=== PATIENT | male | born 1995 | race Caucasian/White ===

== ENCOUNTER 2023-04-12 08:43 | Emergency (ER) | payer OTHER, SELFPAY ==
[2023-04-12 08:48] VITALS: BP 155/98; PULSE 98; RESP 18; O2SAT 100; BMI 26.6
--- NOTE | 2023-04-12 10:57 | ED.GENADUL1 ---
HPI - General Adult General Chief complaint: Dental/Oral Stated complaint: SORE TONGUE/MOUTH Time Seen by Provider: 04/12/23 10:49 Source: patient Mode of arrival: walk-in History of Present Illness HPI narrative: Patient is a 19-year-old male who is presenting to Emergency Room with chief complaint sternum/complaint of whiteness noted to the back of his tongue along with bumps noted to the back of his tongue. Patient had called his PCP last week, and on Wednesday he was started with nystatin swish and swallow. Patient does not believe the white stuff in the back of his tongue or the bumps are going away and the back of his tongue. Patient has some mild sore throat. No fever, chills, headache, neck pain, or any other acute complaints. . All systems are negative except as noted/marked. All systems reviewed and otherwise negative. . Nurses note and vital signs reviewed and patient is not hypoxic. General: The patient appears well and in no apparent distress. Patient is resting comfortably on cart. Patient is not toxic, lethargic, or listless Skin: Warm, dry, no pallor noted. There is no rash noted. No petechiae, purpura. Head: Normocephalic, atraumatic Eye: Normal conjunctiva, no drainage, EOMI. PERRL Ears, Nose, Mouth, and Throat: oral mucosa is moist. Nares patent. Mouth without vesicles. Patient has some mild weight substance to the back of his tongue, but is easily scraped away with a tongue depressor. No signs of fungal infection or thrush. The bumps in the back of his tongue the patient is noticing are his taste buds. Patient has no signs of any other intraoral lesion, no signs of any other fondness, thrush, or any other intraoral pathology. Patient has no signs of dental injury, dental pathology. No signs of Joey angina, no gingivitis, no other acute pathology seen. Cardiovascular: Regular Rate and Rhythm, no murmur, gallop, rub Respiratory: Patient is in no distress, no accessory muscle use, lungs are clear to auscultation, no wheezing, rales or rhonchi Musculoskeletal: Patient has full range of motion of all of the extremities, no motor, sensory, or focal neurological deficits Neurological: A&O x3, normal speech Psychiatric: Cooperative Related Data Home Medications Medication Instructions Recorded Confirmed nystatin 100,000 unit/mL oral 5 ml PO Q6H 04/12/23 04/12/23 suspension Allergies Allergy/AdvReac Type Severity Reaction Status Date / Time amoxicillin AdvReac Unknown Verified 04/12/23 08:53 Exam Constitutional Vital Signs, click to edit/add: Last Vital Signs Pulse 98 H 04/12/23 08:48 Resp 18 04/12/23 08:48 BP 155/98 H 04/12/23 08:48 Pulse Ox 100 04/12/23 08:48 Course Vital Signs Vital signs: Vital Signs Pulse Rate 98 H 04/12/23 08:48 Respiratory Rate 18 04/12/23 08:48 Blood Pressure 155/98 H 04/12/23 08:48 Pulse Oximetry 100 04/12/23 08:48 Pulse Rate 98 H 04/12/23 08:48 Respiratory Rate 18 04/12/23 08:48 Blood Pressure 155/98 H 04/12/23 08:48 Pulse Oximetry 100 04/12/23 08:48 Medical Decision Making MDM Narrative Medical decision making narrative: Patient was taken into a patient bathroom, there remained open. We looked at patient's tongue to make sure that I was seeing what he was concerned about. He showed me the small white debris in the back of her son along with his taste buds. A tongue depressor was used, and it did scrape away the weight debris was on the back of his tongue. No signs of thrush or any other intraoral pathology. Patient was educated on his taste buds. Patient was thankful, Has never noted at the back of his tongue very closely previously, will follow-up with PCP as needed. Patient was extremely nice to take care of Discharge Plan Discharge Chief Complaint: Dental/Oral Clinical Impression: Sinus congestion, Sore throat Patient Disposition: Home, Self-Care Condition: Good Prescriptions / Home Meds: No Action nystatin 100,000 unit/mL suspension 5 ml PO Q6H Instructions: Pharyngitis (ED), How to Use Nasal [place] (ED) Additional Instructions: Using [id number] Claritin or Zyrtec along with Flonase. Increased cold liquids. Education on taste buds done at bedside, follow-up with PCP Stand Alone Forms: Portal Instructions Referrals: Chris Mcdonald MD [Primary Care Provider] - 1 week
== END 2023-04-12 11:04 | disposition home or self-care (01) ==
PROVIDERS: Emergency Provider Emergency Medicine; PCP Family Medicine
DX: J02.9 Acute pharyngitis, unspecified (principal); R09.81 Nasal congestion
CPT/HCPCS: 99281

== ENCOUNTER 2023-09-13 02:10 | Emergency (ER) | payer OTHER, SELFPAY ==
[2023-09-13 02:12] VITALS: BP 158/82; PULSE 104; RESP 18; TEMP 38.1; O2SAT 100
--- NOTE | 2023-09-13 02:25 | ED_ITS ---
HPI - URI/Sore Throat General Chief Complaint: Upper Respiratory Infection Stated Complaint: COUGH Time Seen by Provider: 09/13/23 02:23 Source: patient Limitations: no limitations History of Present Illness HPI Narrative: cough. prescribed Cipro by Dr Mcdonald. not short of breath. Dry cough. low grade fever. No GI symptoms MD elicited complaint: Reports fever and cough Related Data Home Medications Medication Instructions Recorded Confirmed nystatin 100,000 unit/mL oral 5 ml PO Q6H 04/12/23 04/12/23 suspension Allergies Allergy/AdvReac Type Severity Reaction Status Date / Time amoxicillin AdvReac Unknown Verified 04/12/23 08:53 Review of Systems ROS Status of ROS 10 or more systems reviewed and unremark able except as noted in history and below PFSH PFS Social History Smoking status: Never smoker Exam Constitutional Vital Signs, click to edit/add: Last Vital Signs Temp 100.5 F H 09/13/23 02:12 Pulse 104 H 09/13/23 02:12 Resp 18 09/13/23 02:12 BP 158/82 H 09/13/23 02:12 Pulse Ox 100 09/13/23 02:29 O2 Del Method Room Air 09/13/23 02:29 Common normals: no apparent distress, average body habitus, oriented x3, no limitations, healthy appearing and alert [facility] Common normals: normocephalic and head/scalp atraumatic Eye Common normals: EOMs intact bilaterally and conjunctivae normal Respiratory Common normals: normal respiratory effort, no retractions, no use of accessory muscles and clear to auscultation bilaterally Cardio Common normals: regular rate, regular rhythm, S1 normal heart sound and S2 normal heart sound GI Common normals: Normal to inspection, nondistended, normoactive bowel sounds present, soft to palpation and non-tender Extremity Common normals: normal to inspection and full ROM Neuro Common normals: oriented x3, CN's II-XII intact bilaterally, moves all extremities and no focal motor deficits Psych Appearance: grossly normal Course Vital Signs Vital signs: Vital Signs Temperature 100.5 F H 09/13/23 02:12 Pulse Rate 104 H 09/13/23 02:12 Respiratory Rate 18 09/13/23 02:12 Blood Pressure 158/82 H 09/13/23 02:12 Pulse Oximetry 100 09/13/23 02:12 Oxygen Delivery Method Room Air 09/13/23 02:12 Temperature 100.5 F H 09/13/23 02:12 Pulse Rate 104 H 09/13/23 02:12 Respiratory Rate 18 09/13/23 02:12 Blood Pressure 158/82 H 09/13/23 02:12 Pulse Oximetry 100 09/13/23 02:29 Oxygen Delivery Method Room Air 09/13/23 02:29 MDM - URI/Sore Throat MDM Narrative Medical decision making narrative: presents with cough and low grade fever. Exam neg. Cxray clear. Swab positive for influneza A. discharged home to follow up with his doctor Lab Data Labs: Lab Results 09/13/23 09/13/23 Range/Units 02:13 02:39 WBC 6.0 (4.0-11.0) 10^3/uL RBC 4.98 (4.70-6.10) 10^6/uL Hgb 14.5 (14.0-18.0) g/dL Hct 45.9 (42.0-54.0) % MCV 92.2 (80.0-94.0) fL MCH 29.1 (25.9-34.0) pg MCHC 31.6 (29.9-35.2) g/dL RDW 12.2 (11.0-15.0) % Plt Count 126 L (150-450) 10^3/uL MPV 11.2 (9.5-13.5) fL Neut % (Auto) 56.8 (43.0-75.0) % Lymph % (Auto) 23.4 (20.5-60.0) % Rankin % (Auto) 17.8 H (1.7-12.0) % Eos % (Auto) 1.3 (0.9-7.0) % Baso % (Auto) 0.5 (0.2-2.0) % Neut # (Auto) 3.4 (1.4-6.5) 10^3/uL Lymph # (Auto) 1.4 (1.2-3.8) 10^3/uL Rankin # (Auto) 1.1 H (0.3-0.8) 10^3/uL Eos # (Auto) 0.1 (0.0-0.7) 10^3/uL Baso # (Auto) 0.0 (0.0-0.1) 10^3/uL Abs Immat Gran (auto) 0.01 (0.00-0.03) 10^3/uL Imm/Tot Granulo (auto) 0.2 (0.0-0.5) % Sodium 142 (136-145) mmol/L Potassium 3.6 (3.5-5.1) mmol/L Chloride 104 (98-107) mmol/L Carbon Dioxide 28.9 (21.0-32.0) mmol/L Anion Gap 12.7 BUN 12.0 (7.0-18.0) mg/dL Creatinine 1.06 (0.70-1.30) mg/dL Est GFR ( Amer) >60 (>=60) Est GFR (Non-Af Amer) >60 (>=60) BUN/Creatinine Ratio 11.3 Glucose 107 H (74-106) mg/dL Calcium 8.6 (8.5-10.1) mg/dL Influenza Type A Ag Positive A Influenza Type B Ag Negative SARS-CoV-2 Ag (CV2AG) Negative (NEGATIVE) Imaging Data Chest x-ray: Radiologist's impression: ITS Impressions Chest X-Ray 09/13/23 02:26 IMPRESSION: No acute abnormality. Electronically authenticated by: EMMA VALDEZ Date: 09/13/2023 03:06 Discharge Plan Discharge Chief Complaint: Upper Respiratory Infection Clinical Impression: Influenza Patient Disposition: Home, Self-Care Prescriptions / Home Meds: No Action nystatin 100,000 unit/mL suspension 5 ml PO Q6H Instructions: Influenza (ED) Stand Alone Forms: Portal Instructions Referrals: Chris Mcdonald MD [Primary Care Provider] - 1 week
--- NOTE | 2023-09-13 02:26 | XR_ITS ---
The [address] [address] Patient Name: CARLOS WEAVER MRN: [id number] date: 1995 Sex: M Assigned Patient Location: ER Current Patient Location: Accession/Order Number: [id number] Exam Date: 09/13/2023 02:30 Report Date: 09/13/2023 03:06 At the request of: ОЛЬГА CARCAMO Procedure: XR chest 2V CLINICAL HISTORY: Cough. COMPARISON: None. FINDINGS: PA and lateral views of the chest obtained. Cardiomediastinal silhouette is normal. Lungs are clear, no evidence of infiltrate or pleural effusion. No suspicious nodule or mass. No evidence of pneumothorax. No acute bony abnormality. XR/XR chest 2V IMPRESSION: No acute abnormality. Electronically authenticated by: EMMA VALDEZ Date: 09/13/2023 03:06
[2023-09-13 02:29] VITALS: O2SAT 100
[2023-09-13 02:38] LABS: SARS-CoV-2 Ag NEGATIVE (NEGATIVE)
[2023-09-13 02:39] LABS: Influenza Virus A Antigen Positive; Influenza Virus B Antigen Negative; Internal Control Within Normal Limits
[2023-09-13 02:52] LABS: Basophils Percent Auto 0.5 % (0.2-2.0); Eosinophils Absolute Auto 0.1 10^3/uL (0.0-0.7); Eosinophils Percent Auto 1.3 % (0.9-7.0); Hematocrit 45.9 % (42.0-54.0); Hemoglobin 14.5 g/dL (14.0-18.0); Immature Granulocytes Abs Auto 0.01 10^3/uL (0.00-0.03); Immature Granulocytes Pct Auto 0.2 % (0.0-0.5); Lymphocytes Absolute Auto 1.4 10^3/uL (1.2-3.8); Lymphocytes Percent Auto 23.4 % (20.5-60.0); Mean Corpuscular HGB Conc 31.6 g/dL (29.9-35.2); Mean Corpuscular Hemoglobin 29.1 pg (25.9-34.0); Mean Corpuscular Volume 92.2 fL (80.0-94.0); Mean Platelet Volume 11.2 fL (9.5-13.5); Monocytes Absolute Auto 1.1 10^3/uL (0.3-0.8); Monocytes Percent Auto 17.8 % (1.7-12.0); Neutrophils Absolute Auto 3.4 10^3/uL (1.4-6.5); Neutrophils Percent Auto 56.8 % (43.0-75.0); Platelet Count 126 10^3/uL (150-450); Red Blood Count 4.98 10^6/uL (4.70-6.10); Red Cell Distribution Width 12.2 % (11.0-15.0)
[2023-09-13 02:59] LABS: Anion Gap 12.7; BUN Creatinine Ratio 11.3; Calcium 8.6 mg/dL (8.5-10.1); Carbon Dioxide 28.9 mmol/L (21.0-32.0); Chloride 104 mmol/L (98-107); Estimated GFR (African America >60 (>=60); Estimated GFR (Non-African Ame >60 (>=60); Glucose 107 mg/dL (74-106); Potassium 3.6 mmol/L (3.5-5.1); Sodium 142 mmol/L (136-145)
== END 2023-09-13 03:38 | disposition home or self-care (01) ==
PROVIDERS: Emergency Provider Internal Medicine; PCP Family Medicine
DX: J10.1 Influenza due to other identified influenza virus with other respiratory manifestations (principal); R50.9 Fever, unspecified
CPT/HCPCS: 0202U; 36415; 71046; 80048; 85025; 87804; 87811; 99284